=== PATIENT | male | born 1995 | race Asian ===

== ENCOUNTER 2017-07-13 11:12 | Emergency (ER) | payer BC ==
[2017-07-13 12:36] VITALS: BP 148/115
[2017-07-13] MEDS ORDERED: Ibuprofen TAB* 600 MG PO ONE (13:24)
--- NOTE | 2017-07-13 13:30 | UC ---
General HPI - HPI Summary HPI Summary: Patient presents with an unremarkable past medical history. He presents today with one day onset fever, chills, generalized fatigue, malaise, sore throat and cough. He states he is taking dayquil. He denies chest or abdominal pain, nausea , vomiting, or diarrhea. - History of Current Complaint Chief Complaint: UCGeneralIllness Stated Complaint: FEVER, CHILLS, COUGH, AND SORE THROAT Time Seen by Provider: 07/13/17 13:19 Hx Obtained From: Patient Onset/Duration: Sudden Onset, Lasting Days Timing: Constant Onset Severity: Worse Since: - this morning Current Severity: Moderate Pain Intensity: 5 Associated Signs & Symptoms: Positive: Cough, Fever - Allergy/Home Medications Allergies/Adverse Reactions: Allergies Allergy/AdvReac Type Severity Reaction Status Date / Time morphine Allergy Intermediate Rash Verified 07/13/17 12:37 Home Medications: Home Medications DOXYcycline CAP(*) [DOXYcycline 100MG CAP(*)] 100 mg PO BID 07/13/17 [History Confirmed 07/13/17] PMH/Surg Hx/FS Hx/Imm Hx Previously Healthy: Yes - Surgical History Surgical History: Yes Surgery Procedure, Year, and Place: 2009 left arm broken/surgery with plates - Family History Known Family History: Positive: None - Social History Occupation: Student Lives: Dormitory/Roommates Alcohol Use: Rare Substance Use Type: None Smoking Status (MU): Never Smoked Tobacco Review of Systems Constitutional: Fever, Chills, Fatigue Skin: Negative Eyes: Negative ENT: Sore Throat Respiratory: Cough Cardiovascular: Negative Gastrointestinal: Negative Genitourinary: Negative Motor: Negative Neurovascular: Negative Musculoskeletal: Negative Neurological: Negative Psychological: Negative Is Patient Immunocompromised?: No All Other Systems Reviewed And Are Negative: Yes Physical Exam Triage Information Reviewed: Yes Appearance: Ill-Appearing Vital Signs: Initial Vital Signs Temp 100.6 F 07/13/17 12:32 Pulse 81 07/13/17 12:32 Resp 18 07/13/17 12:32 BP 148/115 07/13/17 12:32 Pulse Ox 100 07/13/17 12:32 Vital Signs Reviewed: Yes Eye Exam: Normal ENT: Positive: Pharyngeal erythema, Nasal congestion, Uvula midline Neck exam: Normal Neck: Positive: 1 Respiratory Exam: Normal Respiratory: Positive: Lungs clear, Normal breath sounds, No respiratory distress, No accessory muscle use Cardiovascular Exam: Normal Abdominal Exam: Normal Abdomen Description: Positive: Nontender, No Organomegaly, Soft Musculoskeletal Exam: Normal Neurological Exam: Normal Psychological Exam: Normal Skin Exam: Normal Course/Dx - Course Course Of Treatment: Patient presents with fever, chills, body aches, sore throat. VS revealed a temperature of 100.6, influenza swab positive for A. He ws treated with Tamilfu and was taken out of school for three days. I told him to follow up at [place] [facility] within 48 hours for re-evaluation. - Differential Dx - Multi-Symptom Provider Diagnoses: influenza Discharge - Discharge Plan Condition: Stable Disposition: HOME Prescriptions: Oseltamivir CAP* [Tamiflu CAP*] 75 mg PO BID #10 cap Patient Education Materials: Influenza (DC) Forms: *School Release Referrals: [facility] - Timbo SANDHU [Primary Care Provider] -
== END 2017-07-13 13:52 | disposition home or self-care (01) ==
LOC: UCEAST 11:12
DX: J11.1 Influenza due to unidentified influenza virus with other respiratory manifestations (principal); Z88.5 Allergy status to narcotic agent
CPT/HCPCS: 87502; 99212; G0463